=== PATIENT | male | born 1980 | race Caucasian/White ===

== ENCOUNTER 2018-09-13 13:12 | Emergency (ER) | payer MEDICAID ==
--- NOTE | 2018-09-13 14:39 | ED Physician Chart ---
ED Chief Complaint/HPI - Patient Information Date Seen:: 09/13/18 Time Seen:: 13:30 Chief Complaint:: r eyebrow sutures in 7 Allergies:: Allergies Allergy/AdvReac Type Severity Reaction Status Date / Time No Known Allergies Allergy Verified 09/13/18 13:48 Vitals:: Vital Signs - 8 hr 09/13/18 13:25 Temp 97.1 F HR 92 BP 125/85 O2 Sat % 95 Historian:: Patient Review:: Nurse's Note Reviewed (no reported infectio pus) ED Review of Systems - Review of Systems General/Constitutional: No fever Skin: Skin lesions Head: No headache Eyes: No loss of vision ENT: No earache Neck: No neck pain Cardio Vascular: No chest pain Pulmonary: No SOB Endocrine: No polyuria Psychiatric: Prior psych history Hematopoietic: No bruising Allergic/Immuno: No urticaria Neurological: No syncope ED Past Medical History - Past Medical History Past Medical History: No significant medical hx Social History: Illicit Drug Use Family Medical History - Family Member Mother History Unknown: Yes ED Physical Exam - Physical Examination General/Constitutional: Well-developed, well-nourished, Alert, No distress, Non- toxic appearing Eyes: Lids, conjuctiva normal (3 sutures removed) Skin: No rash (no redness) ENMT: External ears, nose nl Neck: Nontender Respiratory: Nl effort/Exclusion Cardio Vascular: RRR GI: No tenderness/rebounding/guarding Extremities: No tenderness or effusion Neuro/Psych: Alert/oriented Misc: Normal back ED Labs/Radiology/EKG Results - Lab Results Results: 3 out ED Assessment - Assessment General Assessment: suturee out ED Septic Shock - . Is Septic Shock (SBP<90, OR Lactate>4 mmol\L) present?: No - <6hrs of presentation: Vital Signs: Vital Signs - 8 hr 09/13/18 13:25 Temp 97.1 F HR 92 BP 125/85 O2 Sat % 95 ED Reassessment (Disposition) - Patient Disposition Discharge/Transfer:: Home (redness pus pmd)
== END 2018-09-13 14:05 | disposition home or self-care (01) ==
LOC: ER 13:12
DX: S01.111D Laceration without foreign body of right eyelid and periocular area, subsequent encounter (principal); X58.XXXD Exposure to other specified factors, subsequent encounter
CPT/HCPCS: Z7502